=== PATIENT | male | born 1980 | race American Indian/Alaskan Native ===

== ENCOUNTER 2021-08-27 18:32 | Emergency (ER) | payer SELFPAY ==
[2021-08-27] MEDS ORDERED: IBUPROFEN 800 MG TAB PO ONE (19:14)
[2021-08-27] MEDS ORDERED: ACETAMINOPHEN 500 MG TAB PO ONE (19:14)
--- NOTE | 2021-08-27 19:17 | Emergency Department Report ---
ED Fever HPI - General Chief Complaint: Chest Pain Stated Complaint: SHOBHA/CHEST PAIN PUI?: Yes Time Seen by Provider: 08/27/21 19:14 Source: patient Exam Limitations: no limitations - History of Present Illness Initial Comments: Chief complaint: "I think I have the chawla. I could not stop coughing." HPI: This is a 42-year-old male with a history of tobacco and marijuana dependence who presents with fever, cough, chest discomfort, sore throat, body aches since this morning. His friend recently had Covid symptoms. He denies diarrhea. Denies loss of taste or smell. "Everything hurts." Timing/Duration: other (This morning) Fever Severity/Quality: subjective Fever Therapy HOOP PUNCHER: none Associated Symptoms: chest pain, cough, muscle aches, sore throat ED Review of Systems ROS: Stated complaint: SHOBHA/CHEST PAIN Other details as noted in HPI Comment: All other systems reviewed and negative Constitutional: fever, malaise ENT: throat pain Respiratory: cough. denies: shortness of breath Cardiovascular: chest pain Gastrointestinal: denies: abdominal pain, nausea, vomiting, diarrhea Skin: denies: rash, lesions ED Past Medical Hx - Past Medical History Previous Medical History?: No - Surgical History Past Surgical History?: No - Family History Family history: cancer, diabetes - Social History Smoking Status: Current Every Day Smoker Substance Use Type: Marijuana ED Physical Exam - General Limitations: No Limitations General appearance: alert, in no apparent distress - Head Head exam: Present: atraumatic, normocephalic - Eye Eye exam: Present: normal appearance - ENT ENT exam: Present: mucous membranes moist - Neck Neck exam: Present: normal inspection, full ROM - Respiratory Respiratory exam: Present: normal lung sounds bilaterally. Absent: respiratory distress, wheezes, rales, rhonchi - Cardiovascular Cardiovascular Exam: Present: regular rate, normal rhythm, normal heart sounds. Absent: systolic murmur, diastolic murmur, rubs, gallop - GI/Abdominal GI/Abdominal exam: Present: soft, normal bowel sounds. Absent: distended, tenderness, guarding, rebound - Rectal Rectal exam: Present: deferred - Extremities Exam Extremities exam: Present: normal inspection - Neurological Exam Neurological exam: Present: alert, oriented X3 - Psychiatric Psychiatric exam: Present: normal affect, normal mood - Skin Skin exam: Present: warm, dry, intact, normal color. Absent: rash ED Course Vital Signs 08/27/21 08/27/21 08/27/21 18:58 19:56 19:58 Temperature 100.2 F H 99.2 F Pulse Rate 95 H 84 Respiratory 14 20 17 Rate Blood Pressure 137/72 123/72 [Left] O2 Sat by Pulse 94 99 99 Oximetry ED Medical Decision Making - Radiology Data Radiology results: report reviewed Patient Name: JADE MOREJON Gender: Male Date of : October 24, 1978 Referring Provider: PRO JONES Organization: [facility] Accession Number: [id number] Requested Date: August 27, 2021 19:14 Report Status: Final Requested Procedure: 1 Procedure Description: XR chest routine 2V Modality: XR Findings Reporting MD: Sanket Robin Dictation Time: August 27, 2021 18:31 Senior Education Specialist: Not available Pipe Machine Operator Date: CHEST 2 VIEWS INDICATION / CLINICAL INFORMATION: Fever cough. FINDINGS: SUPPORT DEVICES: None. HEART / MEDIASTINUM: No significant abnormality. LUNGS / PLEURA: No significant pulmonary or pleural abnormality. No pneumothorax. ADDITIONAL FINDINGS: No significant additional findings. IMPRESSION: 1. No acute findings. Signer Name: Sanket Robin MD Signed: 08/27/2021 6:31 PM Workstation Name: [id number] - Medical Decision Making Suspected COVID-19 infection without evidence of pneumonia. Recommended rest hydration supportive therapy [id number]. Oxygen saturation 99% on room air Critical care attestation.: If time is entered above; I have spent that time in minutes in the direct care of this critically ill patient, excluding procedure time. ED Disposition Clinical Impression: Suspected COVID-19 virus infection, Viral syndrome Disposition: 01 HOME / SELF CARE / HOMELESS Is pt being admited?: No Does the pt Need Aspirin: No Condition: Stable Instructions: Viral Illness, Adult Referrals: KEITH PORTER MD [Staff Physician] - 3-5 Days
--- NOTE | 2021-08-27 19:35 | XRay Report ---
CHEST 2 VIEWS INDICATION / CLINICAL INFORMATION: Fever cough. FINDINGS: SUPPORT DEVICES: None. HEART / MEDIASTINUM: No significant abnormality. LUNGS / PLEURA: No significant pulmonary or pleural abnormality. No pneumothorax. ADDITIONAL FINDINGS: No significant additional findings. IMPRESSION: 1. No acute findings. Signer Name: Sanket Robin MD Signed: 08/27/2021 7:31 PM Workstation Name: [id number]
[2021-08-27 22:20] VITALS: BP 123/74
== END 2021-08-27 22:20 | disposition home or self-care (01) ==
LOC: EDBD → ED 18:32
DX: B34.9 Viral infection, unspecified (principal); Z20.822 Contact with and (suspected) exposure to COVID-19; F17.200 Nicotine dependence, unspecified, uncomplicated; F12.90 Cannabis use, unspecified, uncomplicated
CPT/HCPCS: 71046; 99283